=== PATIENT | female | born 1945 | race Caucasian/White ===

== ENCOUNTER 2019-04-24 07:17 | Day surgery (SDC) | payer MEDICARE, OTHER ==
[~2019-04-24] VITALS: Ht 161.3 cm; Wt 54.5 kg
[2019-04-24 07:51] LABS: HEMATOCRIT 46.4 % (36.0-48.0); HEMOGLOBIN 15.5 g/dL (12-16); MCH 32.5 pg (26.0-34.0); MCHC 33.4 g/dL (31.0-37.0); MCV 97.3 fL (80.0-100.0); MEAN PLATELET VOLUME 9.9 fL (7.4-10.4); RBC 4.77 10x6/uL (4.00-5.40); RDW 12.8 % (11.5-14.5)
[2019-04-24 08:36] VITALS: BP 153/70; Ht 161.3 cm; Wt 54.5 kg
[2019-04-24] MEDS ORDERED: VITAMIN D5000 UNIT PO (08:43)
[2019-04-24] MEDS ORDERED: CENTRUM SILVER1 EAC3 PO (08:43)
[2019-04-24] MEDS ORDERED: CALCIUM 600 +1 EAC3 PO (08:43)
[2019-04-24] MEDS ORDERED: FISH OIL 1,0001 CA1 (08:45)
[2019-04-24] MEDS ORDERED: VITAMIN C500 MG (08:46)
[2019-04-24] MEDS ORDERED: TYLENOL PM1 TAB PO (08:49)
[2019-04-24] MEDS ORDERED: IBUPROFEN200 MG PO (08:54)
--- NOTE | 2019-04-24 13:10 | NUR ---
DC INSTRUCTIONS GIVEN TO PT. STATES UNDERSTANDING. DC'D IV CATH FULLY INTACT. PT LEFT UNIT VIA WC AT [id number]
--- NOTE | 2019-04-25 11:02 | HP ---
PATIENT: ALDEN MADRID MEDICAL RECORD: [id number] ACCOUNT: [id number] LOCATION:[facility] : 41 ADMISSION DATE: 04/24/19 PCP: LUKASZ ESPINOZA HISTORY AND PHYSICAL EXAMINATION Cc: History of colon polyps HISTORY OF PRESENT ILLNESS: The patient has a history of colon polyps. It is now time for her surveillance colonoscopy. She has been having hemorrhoidal symptoms; however, she does not want a hemorrhoid procedure at this time. She has had some hematochezia. No melena. No abdominal pain. The risks, possible complications and alternatives to the procedure were explained to the patient. She elects to proceed. HOME MEDICATIONS: Please see the nursing list. ALLERGIES: Please see the nursing list. SOCIAL HISTORY: Nonsmoker. PAST MEDICAL AND SURGICAL HISTORY: Arthritis, hypertension, history of colon polyps, history of hysterectomy. PHYSICAL EXAMINATION: GENERAL: The patient does not appear acutely ill. She does not appear chronically ill. VITAL SIGNS: Reviewed. EARS: External ears appear normal. EYES: Extraocular movements are intact. NECK: Trachea is midline. CHEST: No intercostal retractions. PULMONARY: Nonlabored, no stridor. IMPRESSION: History of colon polyps, in need of surveillance colonoscopy. PLAN: Will be surveillance colonoscopy. TRANSINT:[id number] Voice Confirmation ID: [id number] DOCUMENT ID: [id number] LIZ DOUGLAS MD at 1102 CC: LUKASZ ESPINOZA [id number] DICTATION DATE: 04/24/19 1147 LINEN CHECKER: 04/24/19 1218 [facility] 04/24/19 [place] [id number]
--- NOTE | 2019-04-25 11:05 | OP ---
PATIENT NAME: ALDEN MADRID MEDICAL RECORD: [id number] :41 LOCATION:D.OPS ADMISSION DATE: SURGEON: SATYA DOUGLAS MD DATE OF OPERATION: 04/24/2019 PREOPERATIVE DIAGNOSIS: History of colon polyps, in need of surveillance colonoscopy. POSTOPERATIVE DIAGNOSIS: History of colon polyps, in need of surveillance colonoscopy with 1 new polyp at 10 cm and this was a 6 x 6 mm sessile polyp. PROCEDURES: 1. Total colonoscopy to cecum. 2. Hot biopsy forceps polypectomy times 1. SURGEON: Satya Douglas MD SOLUTIONS ARCHITECT: None. BLOOD LOSS: Minimal. ANESTHESIA: IV sedation. COMPLICATIONS: None. ENDOSCOPIC COURSE: The patient was conveyed to the endoscopy suite electively on 04/24/2019. IV sedation was induced by the anesthesia staff. The patient was placed in the Rivas position. A digital rectal examination was performed. A colonoscope was inserted through the anus. It was easily advanced to the cecum. The prep was adequate. I slowly withdrew the endoscope. I dragged the folds. The pullback was greater than a 13-minute pullback. I utilized not only normal imaging but also narrow band imaging. One polyp was noted and this was removed in its entirety utilizing the hot biopsy forceps polypectomy technique. A retroflexed view was obtained in the rectum. I then unretroflexed the scope and removed it under direct vision. I will see the patient in my office in 2-3 weeks, my plan for her to undergo that her next surveillance colonoscopy in 5 years. TRANSINT:[id number] Voice Confirmation ID: [id number] DOCUMENT ID: [id number] SATYA DOUGLAS MD at 1105 CC: [id number] DICTATION DATE: 04/24/[address] SUPERVISOR: 04/24/19 1850 [facility] 04/24/19 [facility] [address] [place] [address]
== END 2019-04-24 13:09 | disposition home or self-care (01) ==
LOC: D.OPS 07:17
PROVIDERS: Anesthesiology; ATTEND Surgery
DX: Z86.010 Personal history of colon polyps (principal)